=== PATIENT | female | born 1965 | race Caucasian/White ===

== ENCOUNTER 2024-03-30 12:42 | Day surgery (SDC) | payer BC, SELFPAY ==
--- NOTE | 2024-03-30 | PATH_ITS ---
[facility] Accession Number: [id number] No. of containers..02 Tissue . 01 Material submitted: . PART A: colon - TRANSVERSE COLON POLYP PART B: colon - SIGMOID POLYP . 01 Diagnosis: Part A: TRANSVERSE COLON POLYP: Inflammatory polyp, ulcerated. No dysplasia identified. . Part B: SIGMOID POLYP: Tubular adenoma. [facility] 04/03/2024 1432 Local . 01 Electronically signed: . Taye Montaño MD, Pathologist NPI- [id number] . 01 Gross description: . A. Received in formalin, labeled with two patient identifiers and designated transverse colon polyp, and consists of a 1.1 x 0.6 x 0.3 cm, abdullahi-brown, polypoid tissue which is inked, bisected, and entirely submitted in cassette A1. . B. Received in formalin, labeled with two patient identifiers and designated sigmoid polyp, and consists of a 1.1 x 0.6 x 0.2 cm, abdullahi -brown, polypoid tissue which is inked, bisected, and entirely submitted in cassette B1. ([id number]) /FRJenna 04/03/2024 143 Local . 01 Pathologist provided ICD-10: D12.5, K51.40 . 01 CPT . 892799, 768599 Specimen Comment: A courtesy copy of this report has been sent to [phone] Performed at: [address] [id number] MD Taye Montaño MD Phone: [phone]
--- NOTE | 2024-03-30 13:50 | P.HP_ITS ---
History of Present Illness History of Present Illness Date Patient Seen: 03/30/24 Time Patient Seen: 13:51 Chief complaint: Screening Colonoscopy Narrative: Lolly is a 58-year-old woman who presents for a colonoscopy. She has never had one before. No family history of colon cancer. [facility] Medical History (Updated 12/27/23 @ 20:18 by Jess Murillo) Trouble in sleeping Shingles Chicken pox Kidney stones (~1997) High cholesterol Surgical History (Updated 12/27/23 @ 20:18 by Jess Murillo) [place] teeth removed Family History (Updated 12/27/23 @ 20:22 by Jess Murillo) Father Cancer Mother History of heart disease Hypertension Grandfather History of heart disease Grandfather History of heart disease Social History Smoking Status: Never smoker Meds Home Medications and Allergies Home Medications Medication Instructions Recorded Confirmed Type estradiol 0.01% (0.1 mg/gram) 1 g vaginal DAILY 12/13/23 12/23/23 History vaginal cream estradiol 0.5 mg tablet 0.5 mg PO DAILY 12/13/23 03/30/24 History valacyclovir 500 mg tablet 500 mg PO BID PRN Outbreak 12/13/23 03/30/24 History cholecalciferol (vitamin D3) 50 50 mcg PO DAILY 03/30/24 03/30/24 History mcg (2,000 unit) tablet (Vitamin D3) herbal drugs 1 cap PO DAILY 03/30/24 History Allergies Allergy/AdvReac Type Severity Reaction Status Date / Time No Known Drug Allergies Allergy Verified 03/30/24 13:44 Exam Const General: No acute distress Resp Effort & Inspection: normal respiratory effort Assessment & Plan Assessment and plan (1) Screening for colon cancer: Status: Acute Plan Colonoscopy Time-Based Coding :: [TOTAL MINUTES] spent with patient and on the chart (including review of chart, obtaining history, exam, reviewing outside data, placing orders, documenting exam and treatment plan, and counseling patient) on [DATE].
[2024-03-30 13:52] VITALS: BP 124/33; PULSE 68; RESP 18; TEMP 36.8; O2SAT 99
--- NOTE | 2024-03-30 14:54 | PM.OP.COLON ---
Operative Date/Time/Diagnoses Date of procedure: 03/30/24 Time of procedure: 14:54 Pre-op diagnosis: Colon cancer screening Post-op diagnosis: same Procedure & Clinicians Study performed: Colonoscopy Same procedure as scheduled: Yes Surgeon: Augie Orta Procedure Notes Procedure in detail: Surgeon: Augie Orta MD Anesthesia: Elenita Estrada MD Procedure: The patient was brought to the endoscopy suite, placed in left lateral decubitus position. The patient was connected to monitoring devices. A time-out was performed. Sedation was administered. Once the patient was adequately sedated, a digital rectal exam was performed and was normal. The scope was then inserted and advanced to the cecum where the appendiceal orifice was identified and photographed. The scope was then slowly withdrawn over greater than 6 minutes. The mucosa was thoroughly inspected. There was a 5 mm polyp in the transverse colon removed with a cold snare. There was brisk bleeding and so a single hemoclip was applied to the polypectomy scar with good effect. There was a 5 mm polyp in the sigmoid colon removed with a cold snare. The scope was retroflexed in the rectum. No other abnormalities were seen. The scope was straightened and removed. The patient was awakened and brought to recovery. Scope withdrawal time: 13 minutes Sedation time: 18 minutes EBL: 5 mL Findings: 5 mm polyp in the transverse colon and 5 mm polyp in the sigmoid colon Post-procedure Disposition: PACU
[2024-03-30 14:58] VITALS: BP 91/61; PULSE 81; RESP 26; TEMP 36.2; O2SAT 100
[2024-03-30 15:03] VITALS: BP 97/65; PULSE 80; RESP 22; O2SAT 100
[2024-03-30 15:09] VITALS: BP 105/65; PULSE 71; RESP 15; O2SAT 99
[2024-03-30 15:11] VITALS: BP 101/63; PULSE 72; RESP 11; TEMP 36.3; O2SAT 97
== END 2024-03-30 15:26 | disposition home or self-care (01) ==
PROVIDERS: PCP Family Medicine; Referring Provider Surgery; Visit Provider Surgery
PROC: 0DJD8ZZ Inspection of Lower Intestinal Tract, Via Natural or Artificial Opening Endoscopic (ICD-10-PCS; CPT 45378; principal; 2024-03-30 14:00)
DX: Z12.11 Encounter for screening for malignant neoplasm of colon (principal); K51.40 Inflammatory polyps of colon without complications; D12.5 Benign neoplasm of sigmoid colon
CPT/HCPCS: 45385; J2704

== ENCOUNTER → 2025-03-12 11:15 | Outpatient (CLI) | payer SELFPAY ==
--- NOTE | 2025-03-12 11:24 | DI.RAD.S_ITS ---
PROCEDURE: XR KNEE LT 3V INDICATIONS: Rule out arthritis TECHNIQUE: 3 views of the knee were acquired. COMPARISON: None. FINDINGS: Bones: No fractures or dislocations. No suspicious bony lesions. Minimal degenerative changes of the patellofemoral and medial femorotibial compartments. Soft tissues: Moderate joint effusion. No suspicious soft tissue calcifications. IMPRESSION: Left knee without acute fracture or dislocation. Minimal degenerative changes of the patellofemoral and medial femorotibial compartments. Moderate joint effusion. Dictated by: Freedom Ramirez M.D. on 03/12/2025 at 12:16 Approved by: Freedom Ramirez M.D. on 03/12/2025 at 12:18
== END ==
PROVIDERS: PCP Family Medicine; Referring Provider Chiropractor; Visit Provider Chiropractor
DX: M17.12 Unilateral primary osteoarthritis, left knee (principal); M25.462 Effusion, left knee
CPT/HCPCS: 73562